=== PATIENT | female | born 1990 | race Caucasian/White ===

== ENCOUNTER 2018-09-07 17:44 | Emergency (ER) | payer OTHER ==
[~2018-09-07] VITALS: Ht 172.7 cm; Wt 58.1 kg
[2018-09-07] MEDS ORDERED: INTESTINEX680 M1 PO (20:32)
[2018-09-07] MEDS ORDERED: PERCOCET 5-3251 EACH PO (20:32)
[2018-09-07] MEDS ORDERED: CELECOXIB200 MG PO (20:32)
[2018-09-07] MEDS ORDERED: AMOX-CLAV 875-1 EACH PO (20:32)
[2018-09-07] MEDS ORDERED: MUPIROCIN22 GM TOP (20:34)
== END 2018-09-07 20:18 | disposition home or self-care (01) ==
LOC: ER 17:44
DX: S62.632A Displaced fracture of distal phalanx of right middle finger, initial encounter for closed fracture (principal); S61.342A Puncture wound with foreign body of right middle finger with damage to nail, initial encounter; W22.8XXA Striking against or struck by other objects, initial encounter; Y93.89 Activity, other specified; Y92.832 Beach as the place of occurrence of the external cause; Y99.8 Other external cause status